=== PATIENT | female | born 1985 | race Caucasian/White ===

== ENCOUNTER 2018-08-31 14:30 | Emergency (ER) | payer MEDICAID ==
[~2018-08-31] VITALS: Ht 167.6 cm; Wt 82.0 kg
[2018-08-31 14:51] VITALS: BP 113/64
[2018-08-31] MEDS ORDERED: IBUPROFEN 800MG TABLET PO ONE (15:15)
== END 2018-08-31 15:56 | disposition left against medical advice (07) ==
LOC: ER 14:56
DX: M25.521 Pain in right elbow (principal); R51 Headache; M54.5 Low back pain
CPT/HCPCS: 99283